=== PATIENT | female | born 1945 | race Caucasian/White ===

== ENCOUNTER → 2025-07-08 13:34 | Outpatient (BNVA) | payer MEDICARE, SELFPAY | PROVIDERS: PCP Family Medicine; Visit Provider Family Medicine | DX: R30.0 Dysuria (principal) | CPT/HCPCS: 81000; 87086 ==

== ENCOUNTER → 2025-08-14 10:01 | Outpatient (BNVA) | payer MEDICARE, SELFPAY | PROVIDERS: PCP Family Medicine; Visit Provider Family Medicine | DX: I10 Essential (primary) hypertension (principal); Z11.59 Encounter for screening for other viral diseases | CPT/HCPCS: 80053; 80061; 84443; 85025; 86803 ==

== ENCOUNTER 2025-08-29 14:33 | Outpatient (CLI) | payer MEDICARE, SELFPAY ==
--- NOTE | 2025-08-29 14:30 | XR_ITS ---
WS: [id number] SCREENING DEXA SCAN [facility] CLINICAL INFORMATION: postmenopausal COMPARISON: None. FINDINGS: The L1-L4 bone mineral density measures 1.142 g/cm2. This corresponds to a T score score of -0.3 and Z score of 1.3. Left femoral neck bone mineral density measures 0.930 g/cm2. This corresponds to a T score of -0.6 and Z score of 1.2. Right femoral neck bone mineral density measures 0.876 g/cm2. This corresponds to a T score -1.0of and Z score of 0.7. Mean femoral neck bone mineral density measures 0.903 g/cm2. This corresponds to a T score of -0.8 and Z score of 0.9. XR/XR DEXA axial skeleton* [id number] IMPRESSION: Normal bone mineralization. Patient's FRAX calculated 10 year probability for major osteoporotic fracture i s 27.3% and osteoporotic hip fracture is 17.0%.
== END 2025-08-29 14:34 | disposition home or self-care (01) ==
LOC: RAD 14:33
PROVIDERS: PCP Family Medicine; Visit Provider Family Medicine
DX: Z13.820 Encounter for screening for osteoporosis (principal); Z78.0 Asymptomatic menopausal state
CPT/HCPCS: 77080